=== PATIENT | male | born 1990 | race Caucasian/White ===

== ENCOUNTER 2020-03-05 11:30 | Observation (INO) | payer MEDICAID, SELFPAY ==
[2020-03-05] VITALS (8 sets, daily range): BP systolic 116–170; BP diastolic 40–89; PULSE 75–110; RESP 16–24; TEMP 36.6–36.8; O2SAT 98–100; BMI 35.2
--- NOTE | 2020-03-05 | CT_ITS ---
EXAMINATION: CT ANGIOGRAM CHEST CLINICAL INFORMATION: Shortness of breath. Elevated d-dimer. Recent surgery. COMPARISON: None TECHNIQUE: Multiple axial images were obtained through the chest after the administration of 100 mL of Omnipaque 350 intravenous contrast. Extensive vascular post-processing including two-dimensional and three-dimensional reformatted images were created and reviewed on an independent workstation. This CT examination was performed using dose optimization techniques as appropriate, variously including the following: *Automated exposure control *Adjustment of mA and/or kV according to patient size (this includes techniques or standardized protocols for targeted exams where dose is matched to indication/reason for exam; i.e. extremities or head) *Use of iterative reconstruction technique DLP: 463 mGy-cm FINDINGS: No pulmonary emboli are demonstrated. No pericardial or pleural effusion. No mediastinal or hilar lymphadenopathy. Lungs appear clear with no consolidation. No edema. Airways are patent. No pneumothorax. The visualized upper abdomen is unremarkable. IMPRESSION: Unremarkable examination. No evidence of pulmonary embolic disease. VTE: Negative.
--- NOTE | 2020-03-05 11:47 | XR_ITS ---
EXAMINATION: XR CHEST CLINICAL INFORMATION: Shortness of breath COMPARISON: None TECHNIQUE: Frontal view of the chest was obtained. FINDINGS: No significant abnormality is noted involving the heart, lungs, mediastinum, bony thorax or soft tissues. IMPRESSION: Unremarkable examination.
--- NOTE | 2020-03-05 11:48 | ECG_ITS ---
Test Reason : SOB Blood Pressure : / mmHG Vent. Rate : 073 BPM Atrial Rate : 085 BPM P-R Int : 160 ms QRS Dur : 094 ms QT Int : 472 ms P-R-T Axes : 000 -25 058 degrees QTc Int : 519 ms Sinus rhythm with marked sinus arrhythmia Low voltage QRS Incomplete right bundle branch block Nonspecific T wave abnormality Prolonged QT Abnormal ECG No previous ECGs available Referred By: Marcela Newell Electronically Signed By:ROWENA CHACON
--- NOTE | 2020-03-05 11:57 | ED.GENADULT ---
HPI - General Adult General Chief complaint: General Medical Stated complaint: VOMITING Time Seen by Provider: 03/05/20 11:46 Source: patient Mode of arrival: ambulatory History of Present Illness HPI narrative: 29-year-old male with a PMHx RLE ORIF 2 mos ago c/o sudden onset SOB, CP, nausea, vomiting, and diarrhea times this morning. Also reports cough. patient reports daily marijuana use, however stopped 4 days ago. Denies other drugs or EtOH. Denies fever, chills, abdominal pain, LE edema, history of clots, sick contacts Onset (ago): hour(s) Pain Consistency: constant Treatments prior to arrival: none Related Data Allergies Allergy/AdvReac Type Severity Reaction Status Date / Time No Known Allergies Allergy Verified 03/05/20 11:47 Review of Systems Review of Systems: Constitutional: No Weight loss, No Fever, No Chills, No Night Sweats, No Fatigue, No Malaise ENT/Mouth: No Hearing loss, No Ear Pain, No Nasal Congestion, No Sinus Pain, No Hoarseness, No sore throat, No Rhinorrhea, No Swallowing Difficulty Cardiovascular: Chest Pain, SOB, No Edema, No Palpitations Respiratory: Cough, No Sputum, No Wheezing Gastrointestinal: Nausea, Vomiting, Diarrhea, No Constipation, No abdominal Pain Genitourinary: No Dysuria, No Urinary Frequency, No Hematuria, Skin: No Skin Lesions, No rash Yes all other systems are reviewed and are negative [facility] Past Medical History Attestation statement: The following information was validated with the patient. Social History Social History Alcohol intake: never Smoked in Last 30 Days: No Use of substances other than those prescribed or required for medical reasons: Yes Substance Use Type: Marijuana Advance Directives: No Advance Directives Information Provided: Yes Physical Exam Vital Signs and I&O and Narrative: Vital Signs and I&O: Vital Signs Temp 98.3 F 03/05/20 15:07 Pulse 85 03/05/20 15:07 Resp 16 03/05/20 15:07 BP 146/89 H 03/05/20 15:07 Pulse Ox 100 03/05/20 15:07 Intake & Output 03/04/20 03/05/20 03/05/20 18:59 06:59 18:59 Intake Total 1999 Balance 1999 Weight 118.026 kg Intake: Intake, IV Amoun t 1999 0.9 % Sodium C hloride 1,000 ml 1999 @ 999 mls/hr I VCONT .Q1H1M MARY Rx#:[id number] Body Mass Index 35.2 Appearance: Alert. Oriented X3. anxious, diaphoretic ENT: Pharynx normal. Neck: Normal inspection. Neck supple. CVS: Normal heart rate and rhythm. Pulses normal. Respiratory: tachypneic. Breath sounds normal. no wheezing, rhonchi, crackles Abdomen: Soft and nontender. Skin: Skin warm. Normal skin color. Normal skin turgor. Extremities: No lower extremity edema. no calf tenderness. No lower extremity edema. Neuro: Oriented X 3. No motor deficit. Course Course Course Narrative: -1351-- leukocytosis of 15 likely from dry heaving rather than infectious etiology. D-dimer elevated at 555 >> will obtain CTA Labs otherwise unremarkable CXR unremarkable initial troponin negative > will obtain repeat -1446-- tox screen positive for marijuana -1500-- CTA without evidence of PE. On re-evaluation patient is still reporting nausea. Will give additional remedies and L of fluid -1624-- patient still without improvement after additional a remedies. Will admit for intractable nausea /vomiting -1709-- hospitalist evaluated patient believed to be in withdrawal. Admitted to opiate use. Will give clonidine and reassess Medical Decision Making MDM Narrative Medical decision making narrative: 29-year-old male with a PMHx RLE ORIF 2 mos ago c/o sudden onset SOB, CP, nausea, vomiting, and diarrhea times this morning. Also reports cough. On exam tachypneic, anxious, jumping around room, diaphoretic, lungs CTA, nontoxic appearing. Concern for ACS vs ? PE vs anxiety vs cyclical vomiting. Low concern for appendicitis/diverticulitis, cholecystitis without tenderness on exam. Low concern for COVID-19 low concern for severe sepsis plan: EKG, labs, UA, symptomatic treatment, reassess Lab Data Result diagrams: 03/05/20 12:02 03/05/20 12:02 Labs: Lab Results 03/05/20 03/05/20 03/05/20 Range/Units 12:02 12:02 12:02 WBC 15.0 H (4.8-10.8) X10*3/uL RBC 5.30 (4.60-5.80) X10*6/uL Hgb 13.8 L (14.0-18.0) g/dl Hct 41.8 L (42-52) % MCV 78.9 L (80-98) fL MCH 26.0 L (27.0-33.0) pg MCHC 33.0 (31.0-36.0) g/dl RDW 12.8 (11.0-16.0) % Plt Count 436 H (160-400) X10*3/uL MPV 10.2 (9.4-12.4) fL Immature Gran % (Auto) 0.6 H (0.0-0.4) % Neut % (Auto) 73.3 H (45-73) % Lymph % (Auto) 18.1 L (20-40) % [place] % (Auto) 6.0 (2-11) % Eos % (Auto) 1.7 (0-4) % Baso % (Auto) 0.3 (0-2) % Neut # (Auto) 11.0 H (2.0-8.3) X10*3/uL Lymph # (Auto) 2.7 (1.2-4.9) X10*3/uL [place] # (Auto) 0.9 (0.1-1.2) X10*3/uL Eos # (Auto) 0.3 (0.0-0.4) X10*3/uL Baso # (Auto) 0.1 (0.0-0.2) X10*3/uL Abs Immat Gran (auto) 0.09 H (0.00-0.03) X10*3/uL Absolute Nucleated RBC 0.000 (0.0-0.012) X10*3/uL Nucleated RBC % (auto) 0.0 (0.0-0.2) /100WBC D-Dimer NG/ML Sodium 137 (135-145) mmol/L Potassium 3.4 (3.3-5.1) mmol/l Chloride 105 (96-108) mmol/L Carbon Dioxide 17 L (22-29) mmol/L Anion Gap 18 (12-20) BUN 12 (9-16) mg/dL Creatinine 0.89 (0.5-1.4) mg/dL Estim Creat Clear Calc 159.5 Estimated GFR > 60 Random Glucose 218 H (60-115) mg/dL Calcium 10.0 (8.4-10.2) mg/dL Magnesium 1.7 (1.6-2.6) mg/dL Total Bilirubin 0.5 (0.0-1.0) mg/dL Direct Bilirubin 0.2 (0.0-0.5) mg/dL AST 19 (5-37) U/L ALT 26 (0-40) U/L Alkaline Phosphatase 34 L (39-117) U/L Troponin I High Sens < 3.5 (<3.5-35.0) ng/L B-Natriuretic Peptide < 10 (<100) pg/mL Total Protein 7.8 (6.5-8.0) g/dL Albumin 4.7 (3.5-5.0) g/dL Urine Opiates Screen (Not Detect) Ur Barbiturates Screen (Not Detect) Ur Phencyclidine Scrn (Not Detect) Ur Amphetamines Screen (Not Detect) U Benzodiazepines Scrn (Not Detect) Urine Cocaine Screen (Not Detect) U Marijuana (THC) Screen (Not Detect) Ethyl Alcohol mg/dL 03/05/20 03/05/20 03/05/20 Range/Units 12:38 12:38 14:05 WBC (4.8-10.8) X10*3/uL RBC (4.60-5.80) X10*6/uL Hgb (14.0-18.0) g/dl Hct (42-52) % MCV (80-98) fL MCH (27.0-33.0) pg MCHC (31.0-36.0) g/dl RDW (11.0-16.0) % Plt Count (160-400) X10*3/uL MPV (9.4-12.4) fL Immature Gran % (Auto) (0.0-0.4) % Neut % (Auto) (45-73) % Lymph % (Auto) (20-40) % [place] % (Auto) (2-11) % Eos % (Auto) (0-4) % Baso % (Auto) (0-2) % Neut # (Auto) (2.0-8.3) X10*3/uL Lymph # (Auto) (1.2-4.9) X10*3/uL [place] # (Auto) (0.1-1.2) X10*3/uL Eos # (Auto) (0.0-0.4) X10*3/uL Baso # (Auto) (0.0-0.2) X10*3/uL Abs Immat Gran (auto) (0.00-0.03) X10*3/uL Absolute Nucleated RBC (0.0-0.012) X10*3/uL Nucleated RBC % (auto) (0.0-0.2) /100WBC D-Dimer 555 NG/ML Sodium (135-145) mmol/L Potassium (3.3-5.1) mmol/l Chloride (96-108) mmol/L Carbon Dioxide (22-29) mmol/L Anion Gap (12-20) BUN (9-16) mg/dL Creatinine (0.5-1.4) mg/dL Estim Creat Clear Calc Estimated GFR Random Glucose (60-115) mg/dL Calcium (8.4-10.2) mg/dL Magnesium (1.6-2.6) mg/dL Total Bilirubin (0.0-1.0) mg/dL Direct Bilirubin (0.0-0.5) mg/dL AST (5-37) U/L ALT (0-40) U/L Alkaline Phosphatase (39-117) U/L Troponin I High Sens (<3.5-35.0) ng/L B-Natriuretic Peptide (<100) pg/mL Total Protein (6.5-8.0) g/dL Albumin (3.5-5.0) g/dL Urine Opiates Screen Not Detected (Not Detect) Ur Barbiturates Screen Not Detected (Not Detect) Ur Phencyclidine Scrn Not Detected (Not Detect) Ur Amphetamines Screen Not Detected (Not Detect) U Benzodiazepines Scrn Not Detected (Not Detect) Urine Cocaine Screen Not Detected (Not Detect) U Marijuana (THC) Screen POSITIVE H (Not Detect) Ethyl Alcohol < 10 mg/dL 03/05/20 Range/Units 15:14 WBC (4.8-10.8) X10*3/uL RBC (4.60-5.80) X10*6/uL Hgb (14.0-18.0) g/dl Hct (42-52) % MCV (80-98) fL MCH (27.0-33.0) pg MCHC (31.0-36.0) g/dl RDW (11.0-16.0) % Plt Count (160-400) X10*3/uL MPV (9.4-12.4) fL Immature Gran % (Auto) (0.0-0.4) % Neut % (Auto) (45-73) % Lymph % (Auto) (20-40) % [place] % (Auto) (2-11) % Eos % (Auto) (0-4) % Baso % (Auto) (0-2) % Neut # (Auto) (2.0-8.3) X10*3/uL Lymph # (Auto) (1.2-4.9) X10*3/uL [place] # (Auto) (0.1-1.2) X10*3/uL Eos # (Auto) (0.0-0.4) X10*3/uL Baso # (Auto) (0.0-0.2) X10*3/uL Abs Immat Gran (auto) (0.00-0.03) X10*3/uL Absolute Nucleated RBC (0.0-0.012) X10*3/uL Nucleated RBC % (auto) (0.0-0.2) /100WBC D-Dimer NG/ML Sodium (135-145) mmol/L Potassium (3.3-5.1) mmol/l Chloride (96-108) mmol/L Carbon Dioxide (22-29) mmol/L Anion Gap (12-20) BUN (9-16) mg/dL Creatinine (0.5-1.4) mg/dL Estim Creat Clear Calc Estimated GFR Random Glucose (60-115) mg/dL Calcium (8.4-10.2) mg/dL Magnesium (1.6-2.6) mg/dL Total Bilirubin (0.0-1.0) mg/dL Direct Bilirubin (0.0-0.5) mg/dL AST (5-37) U/L ALT (0-40) U/L Alkaline Phosphatase (39-117) U/L Troponin I High Sens < 3.5 (<3.5-35.0) ng/L B-Natriuretic Peptide (<100) pg/mL Total Protein (6.5-8.0) g/dL Albumin (3.5-5.0) g/dL Urine Opiates Screen (Not Detect) Ur Barbiturates Screen (Not Detect) Ur Phencyclidine Scrn (Not Detect) Ur Amphetamines Screen (Not Detect) U Benzodiazepines Scrn (Not Detect) Urine Cocaine Screen (Not Detect) U Marijuana (THC) Screen (Not Detect) Ethyl Alcohol mg/dL Discharge Plan Discharge Clinical Impression: Cyclical vomiting Patient Disposition: Admitted as Observation
[2020-03-05 12:09] LABS: MANUAL DIFF FLAG NO
[2020-03-05 12:12] LABS: Basophils Absolute Auto 0.1 X10*3/uL (0.0-0.2); Basophils Percent Auto 0.3 % (0-2); Eosinophils Absolute Auto 0.3 X10*3/uL (0.0-0.4); Eosinophils Percent Auto 1.7 % (0-4); Hematocrit 41.8 % (42-52); Hemoglobin 13.8 g/dl (14.0-18.0); Imm Gran Abs Auto 0.09 X10*3/uL (0.00-0.03); Imm Gran Pct Auto 0.6 % (0.0-0.4); Lymphocytes Absolute Auto 2.7 X10*3/uL (1.2-4.9); Lymphocytes Percent Auto 18.1 % (20-40); Mean Corpuscular Volume 78.9 fL (80-98); Mean Platelet Volume 10.2 fL (9.4-12.4); Monocytes Absolute Auto 0.9 X10*3/uL (0.1-1.2); Neutrophils Percent Auto 73.3 % (45-73); Platelet Count 436 X10*3/uL (160-400); Red Cell Distribution Width 12.8 % (11.0-16.0)
[2020-03-05] MEDS: LORazepam 2 MG/ML VIAL 1 MG IVPUSH (12:17)
[2020-03-05] MEDS: 0.9 % Sodium Chloride 1,000 ML 999 ML IVCONT ×2 (12:17)
[2020-03-05] MEDS: ondansetron HCL 4 MG/2 ML VIAL IVPUSH (12:18)
[2020-03-05 12:38] LABS: Alanine Aminotransferase 26 U/L (0-40); Albumin Level 4.7 g/dL (3.5-5.0); Alkaline Phosphatase 34 U/L (39-117); Anion Gap 18 (12-20); Aspartate Amino Transferase 19 U/L (5-37); Bilirubin Direct 0.2 mg/dL (0.0-0.5); Bilirubin Total 0.5 mg/dL (0.0-1.0); Blood Urea Nitrogen 12 mg/dL (9-16); Carbon Dioxide 17 mmol/L (22-29); Chloride 105 mmol/L (96-108); Creatinine Clr Calc Pharmacy 159.5; Estimated Glomerular Filt Rate > 60; Glucose Random 218 mg/dL (60-115); Magnesium 1.7 mg/dL (1.6-2.6); Potassium 3.4 mmol/l (3.3-5.1); Sodium 137 mmol/L (135-145); Total Protein 7.8 g/dL (6.5-8.0)
[2020-03-05 12:45] LABS: B Type Natriuretic Peptide < 10 pg/mL (<100); Troponin-I High Sensitivity < 3.5 ng/L (<3.5-35.0)
[2020-03-05 12:54] LABS: D Dimer 555 NG/ML
[2020-03-05 13:21] LABS: Ethanol < 10 mg/dL
[2020-03-05] MEDS: Albuterol/Iprat 2.5/0.5MG 3 ML AMPUL.NEB INHALE (13:57)
[2020-03-05] MEDS: iohexoL 350 MG/ML 100 ML INFUS..BTL 65 ML IV (14:30)
[2020-03-05 14:33] LABS: Amphetamine Screen Urine Not Detected (Not Detect); Barbiturates, Urine Not Detected (Not Detect); Benzodiazepines Screen Urine Not Detected (Not Detect); Cannabinoid Screen Urine POSITIVE (Not Detect); Cocaine Screen Urine Not Detected (Not Detect); Opiate Screen Urine Not Detected (Not Detect); Phencyclidine Screen Urine Not Detected (Not Detect)
--- NOTE | 2020-03-05 14:48 | PC.NURSE ---
pt continues to be restless in bed. kneeling on all fours in bed. he states he has n/v, he is dry heaving and spitting up think secretions. pt brought into bathroom via wheelchair states he needs to have BM. needs wheelchair for broken leg.
[2020-03-05] MEDS: Metoclopramide HCl 10 MG/2 ML VIAL IVPUSH (15:20)
[2020-03-05] MEDS: Haloperidol Lactate 5 MG/ML VIAL IM (15:22)
[2020-03-05 15:53] LABS: Troponin-I High Sensitivity < 3.5 ng/L (<3.5-35.0)
[2020-03-05] MEDS: cloNIDine HCL 0.1 MG TABLET PO (17:24)
--- NOTE | 2020-03-05 17:24 | PM.EVENT ---
Event Note Event Note: the patient was seen and evaluated with FREDRICK Shields. I agree with her note, assessment and plan with the following. In summary, a 29 years old patient with history neck fracture who was been using oxycodone presents to the hospital nausea and vomiting. Received treatment in the emergency with fair response but showing signs opioid withdrawal. Start supportive therapy clonidine, Atarax IV fluid Avoid using opioids Rest of evaluations by PA note.
--- NOTE | 2020-03-05 18:17 | PC.NURSE ---
PT FELL ASLEEP AFTER DOSE OF CLONIDINE. REPORT GIVEN TO [employer]BE MACHINE TENDER ALICIA.
--- NOTE | 2020-03-05 19:24 | PC.NURSE ---
Pt awaiting for orders and room assignment. pt denies any pain but c/o nausea and vomiting intermittently. Pt alert and in nad. respirations easy, n/l. skin w/d. Awaiting for further orders.
--- NOTE | 2020-03-05 20:02 | P.HPIM_ITS ---
History of Present Illness Date of Service: 03/05/20 Chief Complaint: Nausea and vomiting this is a 29-year-old male who presents to the emergency department with nausea and vomiting. Patient recently underwent ORIF for tib-fib fracture. he was placed on narcotics for pain control. He has been taking them for the past month and reports that his provider had been weaning him down. He had most recently been taking 5 mg every 4 hours. He ran out several days ago and he has not yet had his follow-up appointment with his orthopedic surgeon. For the past 2-3 days he has been having multiple episodes of vomiting with associated generalized abdominal pain as well as intermittent diarrhea. he denies any r ecent travel or sick contacts. He denies any associated fever or chills. He does report smoking marijuana on a daily basis. In the emergency department his lab work was significant for leukocytosis of 15. initially on arrival the patient had complaints of chest pain and there was some concern for PE given recent surgery however CTA was negative. He was given several doses of antiemetics but continued to have vomiting therefore the decision was made to admit him for observation and further management. Of note EKG revealed QTC prolongation. Review of Systems Review of Systems: Yes all other systems are reviewed and are negative Constitutional: Constitutional: Denies chills and Denies fever(s) Cardiovascular: Cardiovascular: Denies chest pain Respiratory: Respiratory: Denies cough Gastrointestinal: Gastrointestinal: Reports abdominal pain ( Generalized), Reports diarrhea and Reports vomiting [facility] Medical History (Updated 03/05/20 @ 20:10 by FREDRICK Bond) Status post open reduction with internal fixation of fracture Pertinent family history: no history of early coronary artery disease Family history: reviewed and not pertinent Social History Alcohol intake: never Smoked in Last 30 Days: No Use of substances other than those prescribed or required for medical reasons: Yes Substance Use Type: Marijuana Advance Directives: No Advance Directives Information Provided: Yes Meds Allergies Allergy/AdvReac Type Severity Reaction Status Date / Time No Known Allergies Allergy Verified 03/05/20 11:47 Physical Exam Vital Signs and Narrative: Vital Signs: Last Vital Signs Temp 97.8 F 03/05/20 17:26 Pulse 75 03/05/20 17:26 Resp 16 03/05/20 15:07 BP 170/78 H 03/05/20 17:26 Pulse Ox 100 03/05/20 15:07 Body Mass Index 35.2 Results Labs Labs: Laboratory Tests 03/05/20 03/05/20 03/05/20 12:02 12:02 12:02 WBC 15.0 H RBC 5.30 Hgb 13.8 L Hct 41.8 L MCV 78.9 L MCH 26.0 L MCHC 33.0 RDW 12.8 Plt Count 436 H MPV 10.2 Immature Gran % (Auto) 0.6 H Neut % (Auto) 73.3 H Lymph % (Auto) 18.1 L [place] % (Auto) 6.0 Eos % (Auto) 1.7 Baso % (Auto) 0.3 Neut # (Auto) 11.0 H Lymph # (Auto) 2.7 [place] # (Auto) 0.9 Eos # (Auto) 0.3 Baso # (Auto) 0.1 Abs Immat Gran (auto) 0.09 H Absolute Nucleated RBC 0.000 Nucleated RBC % (auto) 0.0 D-Dimer Sodium 137 Potassium 3.4 Chloride 105 Carbon Dioxide 17 L Anion Gap 18 BUN 12 Creatinine 0.89 Estim Creat Clear Calc 159.5 Estimated GFR > 60 Random Glucose 218 H Calcium 10.0 Magnesium 1.7 Total Bilirubin 0.5 Direct Bilirubin 0.2 AST 19 ALT 26 Alkaline Phosphatase 34 L Troponin I High Sens < 3.5 B-Natriuretic Peptide < 10 Total Protein 7.8 Albumin 4.7 Urine Opiates Screen Ur Barbiturates Screen Ur Phencyclidine Scrn Ur Amphetamines Screen U Benzodiazepines Scrn Urine Cocaine Screen U Marijuana (THC) Screen Ethyl Alcohol 03/05/20 03/05/20 03/05/20 12:38 12:38 14:05 WBC RBC Hgb Hct MCV MCH MCHC RDW Plt Count MPV Immature Gran % (Auto) Neut % (Auto) Lymph % (Auto) [place] % (Auto) Eos % (Auto) Baso % (Auto) Neut # (Auto) Lymph # (Auto) [place] # (Auto) Eos # (Auto) Baso # (Auto) Abs Immat Gran (auto) Absolute Nucleated RBC Nucleated RBC % (auto) D-Dimer 555 Sodium Potassium Chloride Carbon Dioxide Anion Gap BUN Creatinine Estim Creat Clear Calc Estimated GFR Random Glucose Calcium Magnesium Total Bilirubin Direct Bilirubin AST ALT Alkaline Phosphatase Troponin I High Sens B-Natriuretic Peptide Total Protein Albumin Urine Opiates Screen Not Detected Ur Barbiturates Screen Not Detected Ur Phencyclidine Scrn Not Detected Ur Amphetamines Screen Not Detected U Benzodiazepines Scrn Not Detected Urine Cocaine Screen Not Detected U Marijuana (THC) Screen POSITIVE H Ethyl Alcohol < 10 03/05/20 15:14 WBC RBC Hgb Hct MCV MCH MCHC RDW Plt Count MPV Immature Gran % (Auto) Neut % (Auto) Lymph % (Auto) [place] % (Auto) Eos % (Auto) Baso % (Auto) Neut # (Auto) Lymph # (Auto) [place] # (Auto) Eos # (Auto) Baso # (Auto) Abs Immat Gran (auto) Absolute Nucleated RBC Nucleated RBC % (auto) D-Dimer Sodium Potassium Chloride Carbon Dioxide Anion Gap BUN Creatinine Estim Creat Clear Calc Estimated GFR Random Glucose Calcium Magnesium Total Bilirubin Direct Bilirubin AST ALT Alkaline Phosphatase Troponin I High Sens < 3.5 B-Natriuretic Peptide Total Protein Albumin Urine Opiates Screen Ur Barbiturates Screen Ur Phencyclidine Scrn Ur Amphetamines Screen U Benzodiazepines Scrn Urine Cocaine Screen U Marijuana (THC) Screen Ethyl Alcohol Assessment and Plan (1) Intractable nausea and vomiting: Status: Acute this is a 29-year-old male who presents with nausea and vomiting intractable nausea vomiting likely multifactorial and related to marijuana hyperemesis and opiate withdrawal - clear liquid diet - IV fluid - continue symptomatic support, although will try to limit antiemetics due to prolonged QT QT prolongation - tele monitoring - 1 dose of IV mag now - repeat EKG in a.m. leukocytosis likely reactive in the setting of nausea and vomiting DVT prophylaxis- Lovenox code status- full code this case was discussed with Dr. Cuadra
[2020-03-05] MEDS: oxyCODONE HCl Immed Release 5 MG TABLET PO (20:27)
--- NOTE | 2020-03-05 22:12 | PC.NURSE ---
Floor unable to take report will return call.
[2020-03-05 23:24] LABS: Magnesium 1.8 mg/dL (1.6-2.6)
[2020-03-05] MEDS: 0.9 % Sodium Chloride 1,000 ML 100 ML IVCONT (23:37)
[2020-03-05] MEDS: Enoxaparin Sodium 40 MG/0.4 ML SYRINGE SUBCUT (23:38)
[2020-03-06] VITALS (8 sets, daily range): BP systolic 111–148; BP diastolic 55–81; PULSE 80–99; RESP 18–20; TEMP 36.2–36.8; O2SAT 98–100
[2020-03-06] MEDS: oxyCODONE HCl Immed Release 5 MG TABLET PO ×2 (00:32→03:21)
[2020-03-06 03:04] LABS: Magnesium 1.9 mg/dL (1.6-2.6)
[2020-03-06 06:31] LABS: MANUAL DIFF FLAG NO
[2020-03-06 06:46] LABS: Basophils Percent Auto 0.3 % (0-2); Eosinophils Percent Auto 0.1 % (0-4); Hematocrit 38.4 % (42-52); Hemoglobin 12.9 g/dl (14.0-18.0); Imm Gran Abs Auto 0.06 X10*3/uL (0.00-0.03); Imm Gran Pct Auto 0.4 % (0.0-0.4); Lymphocytes Absolute Auto 2.2 X10*3/uL (1.2-4.9); Lymphocytes Percent Auto 13.9 % (20-40); Mean Corpuscular HGB Conc 33.6 g/dl (31.0-36.0); Mean Corpuscular Hemoglobin 26.6 pg (27.0-33.0); Mean Corpuscular Volume 79.2 fL (80-98); Mean Platelet Volume 10.7 fL (9.4-12.4); Monocytes Absolute Auto 1.2 X10*3/uL (0.1-1.2); Monocytes Percent Auto 7.5 % (2-11); Neutrophils Absolute Auto 12.4 X10*3/uL (2.0-8.3); Neutrophils Percent Auto 77.8 % (45-73); Platelet Count 411 X10*3/uL (160-400); Red Blood Count 4.85 X10*6/uL (4.60-5.80); Red Cell Distribution Width 12.9 % (11.0-16.0)
[2020-03-06 07:04] LABS: Anion Gap 19 (12-20); Blood Urea Nitrogen 7 mg/dL (9-16); Calcium 9.4 mg/dL (8.4-10.2); Carbon Dioxide 17 mmol/L (22-29); Chloride 105 mmol/L (96-108); Creatinine Clr Calc Pharmacy 191.8; Estimated Glomerular Filt Rate > 60; Glucose Random 105 mg/dL (60-115); Potassium 3.7 mmol/l (3.3-5.1); Sodium 137 mmol/L (135-145)
[2020-03-06] MEDS: cloNIDine HCL 0.1 MG TABLET PO ×3 (08:12→23:55)
[2020-03-06] MEDS: hydrOXYzine HCL 50 MG TABLET PO ×2 (09:23→18:44)
[2020-03-06] MEDS: Ketorolac Tromethamine 15 MG/ML VIAL IVPUSH ×3 (09:23→22:18)
[2020-03-06] MEDS: Acetaminophen 325 MG TABLET 650 MG PO (09:23)
[2020-03-06] MEDS: 0.9 % Sodium Chloride 1,000 ML 100 ML IVCONT ×2 (09:53→21:11)
--- NOTE | 2020-03-06 11:07 | MHC.CM.PN ---
CM met with patient at the bedside who reports he is independent but amb with crutches r/t ORIF done in recent past and patient lives alone. Does not have a HCP and declines filling one out today. Discussed discharge plan, home no services. Family will provide transport. CM will continue to follow for discharge needs.
--- NOTE | 2020-03-06 14:56 | P.PNIM_ITS ---
Subjective Subjective Date of Service: 03/06/20 Interval History: the patient was seen and evaluated this morning Laying in bed, feels comfortable Denies any fever, chills or shortness of breath no reported vomiting overnight, 1 episode only next Lyme tolerating diet this morning No reported other overnight events. Review of Systems Review of Systems: Yes all other systems are reviewed and are negative Physical Exam Vital Signs and I&O and Narrative: Vital Signs and I&O: Vital Signs Temp 97.2 F 03/06/20 11:10 Pulse 80 03/06/20 11:10 Resp 20 03/06/20 11:10 BP 111/55 L 03/06/20 11:10 Pulse Ox 98 03/06/20 11:10 Intake & Output 03/05/20 03/06/20 03/06/20 18:59 06:59 18:59 Intake Total 1999 / 2159 160 / 2160 1050.25 / 1050.25 Output Total 1560 / 1560 350 / 350 Balance 2000 / 600 -1400 / 600 700.25 / 700.25 Urine Output (Aver age ml/kg/hr) 1.10 0.25 Weight 118.026 kg Intake: Intake, Oral [place] unt 160 / 160 Intake, IV Amoun t 1999 / 1999 1050.25 / 1050.25 Promethazine H CL 6.25 mg In 0.9 50.25 / 50.25 % Sodium Chlor edmundo 50 ml @ 201 mls/hr IV ONCE ONE Rx#: [id number] 0.9 % Sodium C hloride 1,000 ml 1999 / 1999 1000 / 1000 @ 100 mls/hr I VCONT .Q10H MARY Rx#:[id number] Output: Output, Urine Am ount 1560 / 1560 350 / 350 Other: Meal Refused No NPO No Yes Breakfast % Eate n 0% Lunch % Eaten 50% Number of Incont inent Voids 4 Urine Urinal Urinal Urine Color Yellow Emesis Color Kira Body Mass Index 35.2 Constitutional : Alert, oriented, not in distress Neck : Normal inspection, Supple Cardiovascular : RRR, S1 S2, no lower extremity edema Respiratory : Good bilateral air entry, no crackles, wheezes or rhonchi Gastrointestinal: soft, lax, Normal bowel sounds, Non tender Skin : Warm/Dry, No rash Neurological : Alert & oriented x3, No focal deficit Objective Data Current Medications Generic Name Dose Route Start Last Admin Trade Name Kimberly PRN Reason Stop Dose Admin Acetaminophen 650 mg 03/05/20 20:31 Acetaminophen 325 Mg Tablet PO Q6H PRN Pain, Mild (Pain Scale 1-3) Clonidine HCl 0.1 mg 03/05/20 20:31 03/06/20 08:12 Clonidine Hcl 0.1 Mg Tablet PO 0.1 mg TID PRN Administration withdrawal symptoms Protocol Enoxaparin Sodium 40 mg 03/05/20 21:00 03/05/20 23:38 Enoxaparin Sodium 40 Mg/0.4 Ml Syringe SUBCUT 40 mg Q24H MARY Administration Hydroxyzine HCl 50 mg 03/06/20 08:26 03/06/20 09:23 Hydroxyzine Hcl 50 Mg Tablet PO 50 mg Q6H PRN Administration Restlessness Sodium Chloride 1,000 mls @ 100 mls/hr 03/05/20 20:31 03/06/20 09:53 Ns IVCONT 100 mls/hr .Q10H MARY Administration Ketorolac Tromethamine 15 mg 03/06/20 08:25 03/06/20 09:23 Ketorolac Tromethamine 15 Mg/Ml Vial IVPUSH 15 mg Q6H PRN Administration Pain, Moderate (Pain Scale 4-6 Sodium Chloride 2 ml 03/06/20 00:00 03/06/20 08:13 0.9 % Sodium Chloride Flush 3 Ml Syringe IVFLUSH Not Given QSHIFT [facility] Labs CBC & Chem 7: 03/06/20 05:59 03/06/20 06:00 Labs: Laboratory Results - last 24 hr 03/05/20 03/05/20 03/06/20 15:14 23:01 02:20 MCV MCH MCHC RDW Plt Count MPV Immature Gran % (Auto) Neut % (Auto) Lymph % (Auto) [place] % (Auto) Eos % (Auto) Baso % (Auto) Lymph # (Auto) [place] # (Auto) Eos # (Auto) Baso # (Auto) Abs Immat Gran (auto) Absolute Neuts (auto) Absolute Nucleated RBC Nucleated RBC % (auto) Anion Gap Estim Creat Clear Calc Estimated GFR Random Glucose Calcium Magnesium 1.8 1.9 Troponin I High Sens < 3.5 03/06/20 03/06/20 05:59 06:00 MCV 79.2 L MCH 26.6 L MCHC 33.6 RDW 12.9 Plt Count 411 H MPV 10.7 Immature Gran % (Auto) 0.4 Neut % (Auto) 77.8 H Lymph % (Auto) 13.9 L [place] % (Auto) 7.5 Eos % (Auto) 0.1 Baso % (Auto) 0.3 Lymph # (Auto) 2.2 [place] # (Auto) 1.2 Eos # (Auto) 0.0 Baso # (Auto) 0.0 Abs Immat Gran (auto) 0.06 H Absolute Neuts (auto) 12.4 H Absolute Nucleated RBC 0.000 Nucleated RBC % (auto) 0.0 Anion Gap 19 Estim Creat Clear Calc 191.8 Estimated GFR > 60 Random Glucose 105 D Calcium 9.4 Magnesium Troponin I High Sens Assessment and Plan (1) Intractable nausea and vomiting: Status: Acute (2) Cyclical vomiting: Status: Acute (3) Opiate withdrawal: Status: Acute Assessment and Plan: A 29 years old patient with history opioid usage after being fracture who presents to the hospital with nausea and vomiting intractable nausea vomiting likely secondary to opiate withdrawal, could be related to marijuana usage advanced diet continue IV fluid antiemetic as needed Opioid withdrawal Secondary to prolonged use oxycodone, clearing it up Continue IV fluid, Atarax and clonidine as needed QT prolongation stable Received magnesium monitor EKG leukocytosis likely reactive in the setting of nausea and vomiting DVT prophylaxis Lovenox
[2020-03-06] MEDS: Enoxaparin Sodium 40 MG/0.4 ML SYRINGE SUBCUT (21:14)
[2020-03-07] MEDS: hydrOXYzine HCL 50 MG TABLET PO ×2 (01:15→07:49)
[2020-03-07 03:48] VITALS: BP 142/85; PULSE 75; RESP 18; TEMP 36.4; O2SAT 100
[2020-03-07] MEDS: diphenhydrAMINE HCL 50 MG/ML VIAL 25 MG IVPUSH (05:08)
[2020-03-07 06:41] LABS: MANUAL DIFF FLAG NO
[2020-03-07 07:00] LABS: Basophils Percent Auto 0.4 % (0-2); Eosinophils Absolute Auto 0.1 X10*3/uL (0.0-0.4); Eosinophils Percent Auto 1.3 % (0-4); Hematocrit 36.8 % (42-52); Hemoglobin 11.8 g/dl (14.0-18.0); Imm Gran Abs Auto 0.03 X10*3/uL (0.00-0.03); Imm Gran Pct Auto 0.3 % (0.0-0.4); Lymphocytes Absolute Auto 2.3 X10*3/uL (1.2-4.9); Lymphocytes Percent Auto 23.9 % (20-40); Mean Corpuscular HGB Conc 32.1 g/dl (31.0-36.0); Mean Corpuscular Hemoglobin 26.1 pg (27.0-33.0); Mean Corpuscular Volume 81.4 fL (80-98); Mean Platelet Volume 10.7 fL (9.4-12.4); Monocytes Absolute Auto 0.8 X10*3/uL (0.1-1.2); Monocytes Percent Auto 7.8 % (2-11); Neutrophils Absolute Auto 6.4 X10*3/uL (2.0-8.3); Neutrophils Percent Auto 66.3 % (45-73); Platelet Count 344 X10*3/uL (160-400); Red Blood Count 4.52 X10*6/uL (4.60-5.80); Red Cell Distribution Width 12.9 % (11.0-16.0); White Blood Count 9.7 X10*3/uL (4.8-10.8)
[2020-03-07 07:32] LABS: Anion Gap 13 (12-20); Blood Urea Nitrogen 10 mg/dL (9-16); Calcium 8.9 mg/dL (8.4-10.2); Carbon Dioxide 20 mmol/L (22-29); Chloride 108 mmol/L (96-108); Creatinine Clr Calc Pharmacy 181.9; Estimated Glomerular Filt Rate > 60; Glucose Random 97 mg/dL (60-115); Potassium 3.7 mmol/l (3.3-5.1); Sodium 137 mmol/L (135-145)
[2020-03-07 07:49] VITALS: BP 142/85; PULSE 75
[2020-03-07] MEDS: cloNIDine HCL 0.1 MG TABLET PO (07:49)
[2020-03-07] MEDS: Ketorolac Tromethamine 15 MG/ML VIAL IVPUSH (07:49)
[2020-03-07] MEDS: 0.9 % Sodium Chloride 1,000 ML 100 ML IVCONT (07:53)
[2020-03-07 08:00] VITALS: BP 138/62; PULSE 76; RESP 18; TEMP 36.5; O2SAT 98
[2020-03-07 11:36] VITALS: BP 123/69; PULSE 75; RESP 18; TEMP 36.6; O2SAT 100
--- NOTE | 2020-03-07 11:57 | MHC.CM.PN ---
Patient will be discharged home today no services. Family will provide transport.
--- NOTE | 2020-03-07 15:52 | PM.DS ---
DS: Providers Provider Date of admission: 03/05/20 19:58 Primary care physician: Unknown Physician DS: Diagnosis Discharge Diagnosis (1) Intractable nausea and vomiting: Status: Acute (2) Cyclical vomiting: Status: Acute (3) Opiate withdrawal: Status: Acute DS: Summary Time Spent with Patient Time attestation: Admission note HPI this is a 29-year-old male who presents to the emergency department with nausea and vomiting. Patient recently underwent ORIF for tib-fib fracture. he was placed on narcotics for pain control. He has been taking them for the past month and reports that his provider had been weaning him down. He had most recently been taking 5 mg every 4 hours. He ran out several days ago and he has not yet had his follow-up appointment with his orthopedic surgeon. For the past 2-3 days he has been having multiple episodes of vomiting with associated generalized abdominal pain as well as intermittent diarrhea. he denies any recent travel or sick contacts. He denies any associated fever or chills. He does report smoking marijuana on a daily basis. In the emergency department his lab work was significant for leukocytosis of 15. initially on arrival the patient had complaints of chest pain and there was some concern for PE given recent surgery however CTA was negative. He was given several doses of antiemetics but continued to have vomiting therefore the decision was made to admit him for observation and further management. Of note EKG revealed QTC prolongation. Hospital course The patient was admitted to the hospital and started on IV fluid, clonidine and Atarax with nausea medication. He improved gradually over the course of hospital stay and was able to tolerate diet which was advanced a 2nd day of admission with no reported nausea or vomiting. His withdrawal symptoms from opioid resolved during the hospital stay. QTC prolongation noticed on EKG. Corrected with magnesium. Leukocytosis resolved. Physical Exam Vital Signs and I&O and Narrative: Vital Signs and I&O: Vital Signs Temp 97.9 F 03/07/20 11:36 Pulse 75 03/07/20 11:36 Resp 18 03/07/20 11:36 BP 123/69 03/07/20 11:36 Pulse Ox 100 03/07/20 11:36 Intake & Output 03/06/20 03/07/20 03/07/20 18:59 06:59 18:59 Intake Total 1050.25 / 2770.25 1720 / 2769. 7 Output Total 350 / 750 400 / 750 Balance 700.25 / 2019. 1320 / 2019. 7 Urine Output (Aver age ml/kg/hr) 0.25 0.28 0.28 Intake: Intake, Oral Claudia unt 720 / 720 480 / 480 Intake, IV Amoun t 1050.25 / 2049.25 1000 / 2049.25 1486.667 / 1486.66 7 Promethazine H CL 6.25 mg In 0.9 50.25 / 50.25 % Sodium Chlor edmundo 50 ml @ 201 mls/hr IV ONCE ONE Rx#: [id number] 0.9 % Sodium C hloride 1,000 ml 999 / 1999 999 / 1999 1486.667 / 1486.66 7 @ 100 mls/hr I VCONT .Q10H MARY Rx#:[id number] Output: Output, Urine Am ount 350 / 750 400 / 750 Other: NPO Yes Breakfast % Eate n 0% Lunch % Eaten 50% Number of Unmeas ured Voids 3 Number of Bowel Movements 1 Urine Urinal Bathroom Stool Bathroom Stool Color Brown Stool Consistenc y Formed Body Mass Index 35.2 DS: Data Data Completed and Pending Labs on day of discharge: Labs from last 24 hours 03/07/20 03/07/20 05:43 05:43 WBC 9.7 RBC 4.52 L Hgb 11.8 L Hct 36.8 L MCV 81.4 MCH 26.1 L MCHC 32.1 RDW 12.9 Plt Count 344 MPV 10.7 Immature Gran % (Auto) 0.3 Neut % (Auto) 66.3 Lymph % (Auto) 23.9 [place] % (Auto) 7.8 Eos % (Auto) 1.3 Baso % (Auto) 0.4 Lymph # (Auto) 2.3 [place] # (Auto) 0.8 Eos # (Auto) 0.1 Baso # (Auto) 0.0 Abs Immat Gran (auto) 0.03 Absolute Neuts (auto) 6.4 Absolute Nucleated RBC 0.000 Nucleated RBC % (auto) 0.0 Sodium 137 Potassium 3.7 Chloride 108 Carbon Dioxide 20 L Anion Gap 13 BUN 10 Creatinine 0.78 Estim Creat Clear Calc 181.9 Estimated GFR > 60 Random Glucose 97 Calcium 8.9 Discharge Plan Discharge Patient Disposition: Home, Self-Care Referrals: Physician,Unknown [Primary Care Provider] - Discharge Medications: Discontinued oxycodone 5 mg Tablet 5 mg PO Q4H PRN (Reason: Moderate Pain (Scale Score 5-6)) RF: 0 Discharge Orders: Discharge Order (Routine); Ordered 03/07/20 Ordered By: Mikhail Cuadra Diet: advance to your usual diet Activity on Discharge: As tolerated Visit Report Forms: Patient Portal Discharge page Care Plan Goals: See below Health Concerns: See below Plan of Treatment: you were admitted to the hospital for evaluation of nausea and vomiting. Seems to be a result of opioid withdrawal. Your treated with fluids, symptomatic measures with good response. Use Tylenol and Advil as needed for pain management
== END 2020-03-07 16:11 | disposition home or self-care (01) ==
LOC: HO.ED 19:38 → HO.S3 20:09 → HO.IMC 21:58
PROVIDERS: Physician Assistant; Admitting Provider Physician Assistant Medical; Emergency Provider Emergency Medicine; Visit Provider Student in an Organized Health Care Education/Training Program
DX: R11.15 Cyclical vomiting syndrome unrelated to migraine (principal); F11.23 Opioid dependence with withdrawal; I45.81 Long QT syndrome; D72.829 Elevated white blood cell count, unspecified; R79.1 Abnormal coagulation profile; F12.10 Cannabis abuse, uncomplicated; I45.10 Unspecified right bundle-branch block; Z98.1 Arthrodesis status; Z79.899 Other long term (current) drug therapy
CPT/HCPCS: 36415; 71045; 71275; 80048; 80076; 80307; 80320; 83735; 83880; 84484; 85025; 85379; 93005; 93010; 96361; 96372; 96374; 96375; 99219; 99284; 99285; J1200; J1650; J1885; J2060; J2405; J2765

== ENCOUNTER 2020-06-04 14:21 | Emergency (ER) | payer MEDICAID, SELFPAY ==
--- NOTE | 2020-06-04 14:30 | ED.ALCOHOL ---
HPI - Alcohol General Stated Complaint: withdrawal Time Seen by Provider: 06/04/20 14:30 Source: patient and EMS Mode of arrival: EMS Limitations: no limitations Related Data Allergies Allergy/AdvReac Type Severity Reaction Status Date / Time No Known Allergies Allergy Verified 03/05/20 11:47 [facility] Past Medical History Medical History (Updated 03/15/20 @ 00:01 by Background Daemon) Status post open reduction with internal fixation of fracture Social History Social History Alcohol intake: never Smoking Status: Never smoker Second Hand Smoke Exposure: Yes Substance Use Type: Marijuana service: No Current occupational status: unemployed
== END 2020-06-04 15:07 | disposition left against medical advice (07) ==
PROVIDERS: Emergency Provider Emergency Medicine
DX: R11.2 Nausea with vomiting, unspecified (principal)
CPT/HCPCS: 99281

== ENCOUNTER 2025-05-14 13:00 | Emergency (ER) | payer MEDICAID, SELFPAY ==
--- NOTE | ~2025-05-14 | CT_ITS ---
EXAMINATION: CT HEAD WITHOUT CONTRAST CLINICAL INFORMATION: headache. pmh of pituary tumor COMPARISON: None available. TECHNIQUE: Contiguous axial imaging was performed from the skull base to vertex without intravenous administration of contrast. This CT examination was performed using dose optimization techniques as appropriate, variously including the following: *Automated exposure control *Adjustment of mA and/or kV according to patient size (this includes techniques or standardized protocols for targeted exams where dose is matched to indication/reason for exam; i.e. extremities or head) *Use of iterative reconstruction technique DLP: 941 mGy-cm FINDINGS: There is a well-defined, 20 x 27 x 17 mm extra-axial hyperdense soft tissue attenuation center the right Sella turcica/right cavernous sinus into right orbital fissure resulting in remodeling of the adjacent osseous structures of the right sphenoid sinus, inferior right anterior clinoid and dorsum sella. No acute intracranial hemorrhage, mass effect, midline shift, hydrocephalus or herniation. Posterior cranial fossa contents demonstrated no acute hemorrhage or mass effect. Normal position of the cerebellar tonsils. No air-fluid levels in the paranasal sinuses. Tympanic cavities and mastoid cells are aerated. CT/CT head/brain wo IV con IMPRESSION: 20 x 27 x 17 mm extra-axial hyperdense mass, right midline sellar turcica/right cavernous sinus . Consider pituitary macroadenoma versus nerve sheath tumor/schwannoma versus meningioma versus less likely giant aneurysm. Recommend IV contrast enhanced MRI brain and sella turcica for further imaging assessment. Electronically signed by: Austin Delaney MD 05/14/2025 04:11 PM JEREMIE
--- NOTE | ~2025-05-14 | MR_ITS ---
CLINICAL HISTORY: Pituitary tumor , best obtainable due to motion, unable to repeat MR Brain with and without gadolinium Comparison: CT/SR - CT HEAD WITHOUT IV CONTRAST - 05/14/25 15:40 EST Findings: No restricted diffusion. Hypertrophy of the pituitary gland, 1.4 cm craniocaudal, sagittal image number 14 of 27, extending into the right cavernous sinus with partial encasement of the cavernous portion of the right internal carotid artery, 3.2 cm transverse by 1.2 cm AP, compressing the optic chiasm, sagittal image number 14 of 23. . No midline shift. No hydrocephalus. Vascular flow voids are intact. Orbital contents are unremarkable. The sinuses and mastoid air cells are clear. No focal bone lesion. IMPRESSION: 1. 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 (Note: Prolactin-secreting tumors are most frequently responsible for cavernous sinus extension). This document has been electronically signed by: Reji Sanchez MD on 05/14/2025 21:57:44
[2025-05-14 15:11] VITALS: BP 165/71; PULSE 86; RESP 18; TEMP 36.6; O2SAT 98; BMI 47.1
--- NOTE | 2025-05-14 15:28 | ED.GENADULT ---
HPI - General Adult General Chief complaint: Headache Stated complaint: head tumor Time Seen by Provider: 05/14/25 16:34 History of Present Illness ED Provider: Manuela Bansal NP HPI narrative: 34-year-old male medical history self-reported for a pituitary tumor previously seen by Neurosurgery, Ophthalmology presents to the ED for evaluation reporting a right-sided headache as well as intermittent dizziness and diplopia, nausea ongoing for 5 days. Patient reports that he was recently incarcerated, was released today and came to the ED for assessment. There has been no recent head injury or trauma. No episodes of syncope. He denies any active dizziness, lightheadedness. Does endorse active diplopia. Does endorse a history of migraine headaches. He denies any chest pain or pressure, shortness of breath, abdominal pain. Reports that he was given ibuprofen while incarcerated, which caused GI upset, and created some nausea and vomiting. This has also since resolved. No fever, chills, recent illnesses. Related Data Allergies Allergy/AdvReac Type Severity Reaction Status Date / Time No Known Allergies Allergy Verified 05/14/25 15:15 Review of Systems Review of Systems: ROS is otherwise negative unless mentioned in HPI. [facility] Past Medical History Surgical History Status post open reduction with internal fixation of fracture Social History Social History Alcohol intake: never Comment: pt now sleeping Second Hand Smoke Exposure: Yes Substance Use Type: Marijuana Advance Directives: No Advance Directives Information Provided: No Do you have a plan to hurt others: No Plan service: No Current occupational status: unemployed Physical Exam ED Exam Exam: Nursing notes and vital signs reviewed. Constitutional: Well-appearing, NAD. Alert. Oriented X3. Eyes: Pupils equal, round and reactive to light. ENT: Pharynx normal. Neck: Normal inspection. Neck supple. CVS: Pulses normal. Respiratory: No respiratory distress. Abdomen: Nondistended. Skin: Skin warm and dry. Normal skin color. Extremities: No lower extremity edema. Neuro: Oriented X 3. Cranial nerves intact. No dysmetria, [id number] intact. No motor deficit. Vital Signs: Vital Signs - 24 hr 05/14/25 15:11 05/14/25 18:00 05/14/25 22:40 Temperature 98 F 97.7 F Pulse Rate 86 80 87 Respiratory Rate 18 20 18 Blood Pressure 165/71 H 152/76 H 113/69 Pulse Oximetry 98 97 97 Oxygen Delivery Method Room Air Room Air Room Air 05/15/25 01:48 05/15/25 03:44 Temperature 97.9 F 97.9 F Pulse Rate 100 100 Respiratory Rate 18 18 Blood Pressure 139/74 139/74 Pulse Oximetry 97 97 Oxygen Delivery Method Room Air Room Air BMI result Body Mass Index 47.1 Course Course Course Narrative: RME: 34-year-old male presents to ED for right-sided headache dizziness and nausea for the past 5 days. Patient has history of known pituitary tumor. Patient has not follow up in 6 months due to being in assisted. Labs imaging ordered 4:17pm Radiologist Austin Mckeon sent a text stating that patient to get MRI Brain Iv to evaluate for possibly meningioma versus schwannoma versus giant aneurysm versus right cavernous sinus syndrome. Medications Administered Discontinued Medications Generic Name Dose Route Start Last Admin Trade Name Freq PRN Reason Stop Dose Admin Acetaminophen 650 mg 05/15/25 02:57 05/15/25 03:03 Acetaminophen 325 Mg Tablet PO 05/15/25 02:58 650 mg ONCE ONE Administration Gadobutrol 7.5 ml 05/14/25 21:14 05/14/25 21:15 Gadobutrol 7.5 Ml Vial IVPUSH 05/14/25 21:15 5 ml ONCE ONE Administration Sodium Chloride 1,000 mls @ 999 mls/hr 05/14/25 16:45 05/14/25 19:37 Ns IV 05/14/25 17:45 Infused .Q1H1M ONE Infusion Acetaminophen 1,000 mg in 100 mls @ 400 mls/hr 05/14/25 16:45 05/14/25 19:37 Ofirmev IV 05/14/25 16:59 Infused ONCE ONE Infusion Prochlorperazine Edisylate 10 mg 05/14/25 16:45 05/14/25 16:59 Prochlorperazine Edisylate 10 Mg/2 Ml Vial IVPUSH 05/14/25 16:46 10 mg ONCE ONE Administration Medical Decision Making Medical Decision Making MDM Narrative: 4:50 PM 05/14/2025 (Manuela Bansal NP): Upon my assessment of this patient, I reviewed the CT findings of the head, as well as recent lab work that was obtained today. CT of the head does reveal evidence for a 20 x 27 x 17 mm extra-axial hyperdense mass, in the right midline stellar turcica/right cavernous sinus. Per Radiology, this could be a pituitary macroadenoma versus a nerve sheath tumor, versus a meningioma, versus less likely giant aneurysm. The patient reports that he had imaging done 6 months ago at [facility], but does not have access to it. Does not know the size of the pituitary tumor. Despite there being no pituitary tumor, if it has enlarged, can pose an increasing risk given the new symptoms and may require emergent neurosurgery intervention. The MRI of the brain was ordered by the triage provider. This is currently pending. The patient is agreeable to this testing. He has leukocytosis to 14.8, nonspecific. Possibly due to vomiting. Otherwise his lab work is reassuring. Pending viral panel, MRI, we will reassess. We will administer a migraine cocktail while in the ED. 6:23 PM-- the patient went for an MRI, though I was informed by MRI staff the patient has an ankle monitor on. It can not be removed by anyone besides his gunnery/ordnance officer. I spoke with his PO via the patients personal celll-phone, he initially requested that we reschedule the MRI, I informed him we can not do that given the emergent situation an ankle monitor needs to be removed today so MRI can be performed. He is going to make some calls and let us know a time frame for removing the monitoring so we can proceed with MRI. Patient does report headache has improved. 6:48 PM-- received a call back from the patient's industrial relations officer. Per the patient, instructions are to remove the ankle bracelet in the ER by cutting it off and to leave it in the room. Patient is agreeable with the plan. Nursing staff made aware. 10:15 PM-- I received the MRI report. It shows that there is a pituitary gland hypertrophy measuring 1.4 cm that is extending into the right cavernous sinus with partial encasement of the cavernous portion of the right ICA, now impinging on the optic chiasm. Plan to transfer for neurosurgery consult/management. Patient is agreeable to transfer. [facility] is closed to transfer at this time (10:19 PM). [facility] pending review of the imaging and neurosurgery input (10:29 PM). Spoke with [facility]. They are currently closed to transfers but reaching out to other sister facilities with neurosurgery for possible placement (11:14 PM). Still pending call-back from [facility]. 11:45 PM: Patient accepted to [facility] ED campus under the care of Dr. Bowden. He is agreeable with the transfer. Differential Diagnosis Differential Diagnoses: The differential diagnosis associated with the presentation includes Pituitary tumor that is enlarging or compressing optic nerve, migraine headache, new brain mass Admission/Observation Consideration of admission/observation: Escalation of care including admission/observation considered (Transfer indicated given lack of neurosurgery availability) Consult Healthcare Provider Management of the patient was discussed with: Signals Officer Transfer center Lab Data MDM Lab Attestation statement: I reviewed the patient's lab results. (Overall reassuring) 05/14/25 15:38 05/14/25 15:38 Labs: Lab Results 05/14/25 Range/Units 15:38 WBC 14.8 H (4.8-10.8) X10*3/uL RBC 5.77 (4.60-5.80) X10*6/uL Hgb 14.2 (14.0-18.0) g/dl Hct 44.6 (42.0-52.0) % MCV 77.3 L (80.0-98.0) fL MCH 24.6 L (27.0-33.0) pg MCHC 31.8 (31.0-36.0) g/dl RDW 14.5 (11.0-16.0) % Plt Count 388 (160-400) X10*3/uL MPV 9.5 (9.4-12.4) fL Immature Gran % (Auto) 0.5 H (0.0-0.4) % Neut % (Auto) 81.6 H (45-73) % Lymph % (Auto) 12.8 L (20-40) % [place] % (Auto) 4.9 (2-11) % Eos % (Auto) 0.0 (0-4) % Baso % (Auto) 0.2 (0-2) % Lymph # (Auto) 1.9 (1.2-4.9) X10*3/uL [place] # (Auto) 0.7 (0.1-1.2) X10*3/uL Eos # (Auto) 0.0 (0.0-0.4) X10*3/uL Baso # (Auto) 0.0 (0.0-0.2) X10*3/uL Abs Immat Gran (auto) 0.07 H (0.00-0.03) X10*3/uL Absolute Neuts (auto) 12.0 H (2.0-8.3) x10*3/uL Absolute Nucleated RBC 0.000 (0.0-0.012) X10*3/uL Nucleated RBC % (auto) 0.0 (0.0-0.2) /100WBC Sodium 137 (135-145) mmol/L Potassium 3.7 (3.3-5.1) mmol/L Chloride 103 (96-108) mmol/L Carbon Dioxide 25 (22-29) mmol/L Anion Gap 13 (12-20) BUN 14 (9-16) mg/dL Creatinine 0.68 (0.5-1.4) mg/dL Estim Creat Clear Calc 206.6 Estimated GFR > 60 Random Glucose 128 H (60-115) mg/dL Calcium 9.5 D (8.4-10.2) mg/dL Total Bilirubin 0.3 (0.0-1.0) mg/dL AST 17 (5-37) U/L ALT 26 (0-40) U/L Alkaline Phosphatase 27 L (39-117) U/L Total Protein 7.7 (6.5-8.0) g/dL Albumin 4.6 (3.5-5.0) g/dL Influenza Type A (PCR) NEGATIVE (Negative) Influenza Type B (PCR) NEGATIVE (Negative) RSV RNA Qual (PCR) NEGATIVE (Negative) SARS-CoV-2 RNA (RT-PCR) NEGATIVE (Negative) Independent Interpretation I performed an independent interpretation of an: EKG Interpretation: Rate: 95 Rhythm: NSR [place]: 45/-21/35 Normal P waves. Normal CAROLINE. Normal QRS complex. ST T wave : no dep,elev qTC: 459 prior studies:similar The study has been interpreted contemporaneously by me. Radiology Impression Discussion of test interpretation with radiology: I have reviewed the radiologist's reading. Radiologist Impression: CT/CT head/brain wo IV con IMPRESSION: 20 x 27 x 17 mm extra-axial hyperdense mass, right midline sellar turcica/right cavernous sinus . Consider pituitary macroadenoma versus nerve sheath tumor/schwannoma versus meningioma versus less likely giant aneurysm. Recommend IV contrast enhanced MRI brain and sella turcica for further imaging assessment. MRI Brain WO IMPRESSION: 1. 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 (Note: Prolactin-secreting tumors are most frequently responsible for cavernous sinus extension). Independent Historian Clinical information obtained from an independent historian. History obtained from or confirmed by: Parent External Record Review External record reviewed: Inpatient record Chronic Conditions Patient?s care impacted by: Other (Pituitary tumor) Social Determinants Patient?s care significantly limited by Social Determinants of Health including: Inadequate housing, Low income, Alcoholism and drug addiction in family, Problems related to primary support group, Unemployment and Problems related to employment Discharge Plan Discharge Clinical Impression: Pituitary tumor, Diplopia Patient Disposition: Xfer Acute Care Hospital Transfer Details: [facility] ED, DR. BOWDEN Interventions: Acute Care Transfer Worksheet (ED) Last Done: 05/15/25 03:44 Discharge Date/Time: 05/15/25 03:46 Print Language: [place]
[2025-05-14 15:53] LABS: MANUAL DIFF FLAG NO
[2025-05-14 15:56] LABS: Hematocrit 44.6 % (42.0-52.0); Hemoglobin 14.2 g/dl (14.0-18.0); Imm Gran Abs Auto 0.07 X10*3/uL (0.00-0.03); Imm Gran Pct Auto 0.5 % (0.0-0.4); Lymphocytes Absolute Auto 1.9 X10*3/uL (1.2-4.9); Mean Corpuscular HGB Conc 31.8 g/dl (31.0-36.0); Mean Corpuscular Hemoglobin 24.6 pg (27.0-33.0); Mean Corpuscular Volume 77.3 fL (80.0-98.0); NRBC Abs Auto 0.000 X10*3/uL (0.0-0.012); NRBC Pct Auto 0.0 /100WBC (0.0-0.2); Platelet Count 388 X10*3/uL (160-400); Red Blood Count 5.77 X10*6/uL (4.60-5.80); White Blood Count 14.8 X10*3/uL (4.8-10.8)
[2025-05-14 16:15] LABS: Alanine Aminotransferase 26 U/L (0-40); Albumin Level 4.6 g/dL (3.5-5.0); Alkaline Phosphatase 27 U/L (39-117); Anion Gap 13 (12-20); Aspartate Amino Transferase 17 U/L (5-37); Blood Urea Nitrogen 14 mg/dL (9-16); Calcium 9.5 mg/dL (8.4-10.2); Carbon Dioxide 25 mmol/L (22-29); Chloride 103 mmol/L (96-108); Creatinine Clr Calc Pharmacy 206.6; Estimated Glomerular Filt Rate > 60; Potassium 3.7 mmol/L (3.3-5.1); Sodium 137 mmol/L (135-145); Total Protein 7.7 g/dL (6.5-8.0)
--- NOTE | 2025-05-14 16:47 | ECG_ITS ---
Test Reason : GER[place], view QTC Blood Pressure : */* mmHG Vent. Rate : 95 BPM Atrial Rate : 95 BPM P-R Int : 154 ms QRS Dur : 94 ms QT Int : 366 ms P-R-T Axes : 45 -21 35 degrees QTcB Int : 459 ms Normal sinus rhythm Normal ECG When compared with ECG of 05-Mar-2020 12:18, Incomplete right bundle branch block is no longer Present Nonspecific T wave abnormality, improved in Inferior leads Nonspecific T wave abnormality no longer evident in Lateral leads QT has shortened Referred By: Manuela Bansal Electronically Signed By: Ez Charles
[2025-05-14 17:02] LABS: Resp Syncy Virus RNA Qual PCR NEGATIVE (Negative); SARS COV2 PCR INHOUSE NEGATIVE (Negative)
[2025-05-14 18:00] VITALS: BP 152/76; PULSE 80; RESP 20; O2SAT 97
--- NOTE | 2025-05-14 18:44 | PC.NURSE ---
i&c tech called to report that ED RN had said that the customs and immigration officer told her it was OK to cut off his ankle monitor in order to perform MRI-
[2025-05-14 22:40] VITALS: BP 113/69; PULSE 87; RESP 18; TEMP 36.5; O2SAT 97
[2025-05-15 01:48] VITALS: BP 139/74; PULSE 100; RESP 18; TEMP 36.6; O2SAT 97
[2025-05-15 03:44] VITALS: BP 139/74; PULSE 100; RESP 18; TEMP 36.6; O2SAT 97
== END 2025-05-15 03:46 | disposition short-term general hospital (02) ==
PROVIDERS: Physician Assistant; Emergency Provider Emergency Medicine
DX: D35.2 Benign neoplasm of pituitary gland (principal); H53.2 Diplopia; R51.9 Headache, unspecified; I45.10 Unspecified right bundle-branch block; R94.31 Abnormal electrocardiogram [ECG] [EKG]; Z03.818 Encounter for observation for suspected exposure to other biological agents ruled out
CPT/HCPCS: 36415; 70450; 70553; 80053; 85025; 87637; 93005; 96365; 96366; 96375; 99285; A9585; J0131; J0737

== ENCOUNTER → 2025-05-14 15:27 | Outpatient (BNV) | payer MEDICAID, SELFPAY | PROVIDERS: Visit Provider Radiology Diagnostic Radiology | DX: D35.2 Benign neoplasm of pituitary gland (principal); G93.89 Other specified disorders of brain | CPT/HCPCS: 70450; 70553 ==

== ENCOUNTER → 2025-05-14 16:47 | Outpatient (BNV) | payer MEDICAID, SELFPAY | PROVIDERS: Emergency Provider Emergency Medicine; Visit Provider Internal Medicine Cardiovascular Disease | DX: R51.9 Headache, unspecified (principal); Z13.6 Encounter for screening for cardiovascular disorders | CPT/HCPCS: 93010 ==